=== PATIENT | female | born 1990 | race Caucasian/White ===

== ENCOUNTER 2016-09-15 18:29 | Inpatient (IN) | payer BC ==
[~2016-09-15] VITALS: Ht 157.5 cm; Wt 68.5 kg
[2016-09-19] MEDS ORDERED: PRENATAL VIT1 TAB PO (13:35)
[2016-09-19] MEDS ORDERED: IRON325 M1 PO (13:35)
[2016-09-19] MEDS ORDERED: PERCOCET 5-3251 EACH PO (13:35)
[2016-09-19] MEDS ORDERED: COLACE-DPS100 MG PO (13:35)
[2016-09-19] MEDS ORDERED: NIPPLECREAM TP (13:35)
[2016-09-19] MEDS ORDERED: MOTRIN-DPS800 MG PO (13:35)
--- NOTE | 2016-10-07 09:14 | OR ---
ADMIT: 09/15/2016 RM/LOC: 201 [facility] MR#: [id number] [address] [place] [address] LYUBOV GALVAN [address] [place] [address] Operative/Delivery Room Report SEX: F AGE: 26 : 1990 Corrected: 09/18/2016 0609 njv SURGERY DATE: 09/16/2016 SURGEON: Aby Oden MD NAME OF PROCEDURE: Primary section. GAME PROGRAMMER: Iwona Ramachandran MD Resident. PREOPERATIVE DIAGNOSES: 1. Intrauterine at 41 and 1/7th weeks' gestation. 2. Nonreassuring heart tones. POSTOPERATIVE DIAGNOSES: 1. Intrauterine at 41 and 1/7th weeks' gestation. 2. Nonreassuring heart tones. FINDINGS: Liveborn male infant, scores 8 at 1 minute, 9 at 5 minutes. Weight 7 pounds and 7 ounces. ESTIMATED BLOOD LOSS: 800 mL. ANESTHESIA: Epidural. COMPLICATIONS: None. INDICATIONS FOR PROCEDURE: The patient is a 26-year-old 1, para 0, who presented to Labor and Delivery at 41 and 0/7th weeks' gestation for scheduled induction of labor at term and due to dates. The patient's had been uncomplicated. At time of admission, the patient had misoprostol induction of labor. The patient received 2 doses of misoprostol. She had spontaneous rupture of membranes. The patient then progressed to 2 cm dilated. Pitocin augmentation of labor was then started. The patient progressed to approximately 4 cm dilated, however, at that time she began having late decelerations with Pitocin at a high enough level to have adequate contractions. The heart tones recovered when the Pitocin was off. Due to nonreassuring heart tones, decision was made to proceed with primary section. The risks, benefits, and alternatives including but not limited to risk of bleeding, possibly requiring blood transfusion, the risk of infection, the risk of injury to bowel or bladder were discussed with the patient and she agreed to proceed. DESCRIPTION OF PROCEDURE: The patient was taken to the operating room where epidural anesthesia was found to be adequate. The patient was placed in dorsal supine position in leftward tilt, and prepped and draped in usual sterile fashion. A Roblero catheter had been placed. A Pfannenstiel skin incision was made with a scalpel and was carried through to the underlying layer of fascia. The fascia was nicked in midline and this incision was extended bilaterally ADMIT: 09/15/2016 RM/LOC: 201 [facility] MR#: [id number] [address] [id number] NÉSTORLYUBOV MORELOS [address] [place] [address] Operative/Delivery Room Report SEX: F AGE: 26 : 1990 using Zamorano scissors. The superior aspect of the fascial incision was grasped with Annika clamps, elevated, and the underlying rectus muscles were dissected off with Zamorano scissors. In a similar fashion, the inferior aspect of the fascial incision was grasped with Annika clamps, elevated, and the underlying rectus muscles were dissected off with Zamorano scissors. The peritoneum was entered bluntly and this incision was extended bluntly as well. The bladder blade was then placed. The vesicouterine peritoneum was identified and entered sharply with Metzenbaum scissors. This incision was extended bilaterally and a bladder flap was created digitally. The bladder blade was then replaced. The lower uterine segment was incised with a scalpel. The uterine incision was extended bluntly. The infant was noted to be in the occiput posterior position. The infant's vertex was grasped and delivered through the uterine incision. The remainder of the infant delivered without difficulty as well. The infant was dried. The cord was clamped and cut. The was handed off to the warmer where NICU personnel were in attendance. Cord blood and cord pH were obtained. The placenta then delivered intact. Twenty units of Pitocin were placed in IV bag to firm the uterus. The uterus was exteriorized and cleared of all clots and debris. The uterine incision was closed in a running locked fashion using 0 Vicryl. A second imbricating layer was used for hemostasis of the uterine incision. There was noted to be an area at the right aspect of the incision which was noted to be bleeding, and this was made hemostatic with a [id number]-rurpt stitch of 0 Vicryl. Good hemostasis was then noted. The uterus was replaced into the abdominal cavity. The gutters were checked and cleared of all clots and debris. The uterine incision was again examined and was made hemostatic with electrocautery. The muscles and fascia were examined and made hemostatic with electrocautery. The fascial incisions were closed in a running fashion using 0 Vicryl. The subcutaneous layer was made hemostatic. This layer was brought together using interrupted 2-0 plain gut. The skin incision was closed with subcuticular stapler. The patient tolerated the procedure well. All sponge and needle counts were correct. The patient and recovered in the room in stable condition. Aby Oden MD/ solange JOB #: [id number] CC: Aby Oden, Attending Physician Aby Oden, Family Physician Corrected: 09/18/2016 0609 njv
--- NOTE | 2016-10-07 09:14 | HP ---
ADMIT: 09/15/2016 RM/LOC: 201 [facility] MR#: [id number] [address] [place] [id number] LYUBOV GALVAN [address] [place] [address] History and Physical SEX: F AGE: 26 : 1990 DATE OF SERVICE: REASON FOR ADMISSION: Induction of labor. HISTORY OF PRESENT ILLNESS: The patient is a 26-year-old 1, para 0, who presents to Labor and Delivery at 41 and 0/7th weeks' gestation by ultrasound with estimated confinement 09/08/2016. The patient's has been uncomplicated. The patient did have an HIV exposure in the 3rd trimester and was on anti-retrovirals for 1 month, but followup HIV status has been negative. At time of admission, she denied any contractions, vaginal bleeding, or loss of fluid. LABORATORY DATA: Blood type O positive, antibody screen negative, RPR nonreactive, rubella immune, group B strep negative, HIV negative, gonorrhea and chlamydia negative, hepatitis B surface antigen negative. PAST MEDICAL HISTORY: Noncontributory. PAST SURGICAL HISTORY: Laparoscopy for endometriosis in 2009. CURRENT MEDICATIONS: 1. vitamins daily. 2. Iron 325 mg daily. ALLERGIES: NO KNOWN MEDICAL ALLERGIES. FAMILY HISTORY: Father with hypertension. SOCIAL HISTORY: The patient is . She denies any alcohol, tobacco, or drug use. PHYSICAL EXAMINATION: VITAL SIGNS: On admission; blood pressure 130/80, pulse 91, temperature 98.6, and respirations 16. GENERAL: The patient is alert and oriented, no acute distress. HEART: Regular rate and rhythm without murmurs, gallops, or rubs. ADMIT: 09/15/2016 RM/LOC: 201 [facility] MR#: [id number] [address] [place] [address] [id number] LYUBOV GALVAN [address] [place] [address] History and Physical SEX: F AGE: 26 : 1990 LUNGS: Clear to auscultation bilaterally. ABDOMEN: Soft, nontender, gravid. EXTREMITIES: No edema. No calf tenderness. heart tones are in the 140s with moderate variability and accelerations present. Contractions are irregular on admission. Cervix 1 cm dilated, 50% effaced, and -1 station. ASSESSMENT AND PLAN: 1. A 26-year-old 1, para 0, at 41 and 0/7th weeks' gestation. 2. Scheduled induction of labor at term with misoprostol. We will anticipate a spontaneous vaginal delivery. Aby Oden MD/ solange JOB #: [id number] CC: Aby Oden, Attending Physician Aby Oden, Family Physician
--- NOTE | 2016-11-18 08:55 | DS ---
ADMIT: 09/15/2016 RM/LOC: 201 [facility] MR#: [id number] [id number] [place], [place] [address] LYUBOV GALVAN [address] [place] [address] Discharge Summary SEX: F AGE: 26 : 1990 ADMISSION DATE: 09/15/2016 DISCHARGE DATE: 09/18/2016 ADMISSION DIAGNOSIS: Intrauterine at 41 and 0/7th weeks' gestation. DISCHARGE DIAGNOSES: 1. Intrauterine at 41 and 0/7th weeks' gestation. 2. Nonreassuring heart tones. PROCEDURES PERFORMED: Primary section performed on 09/16/2016 with delivery of liveborn male , scores 8 at 1 minute, 9 at 5 minutes. Weight 7 pounds and 7 ounces. INDICATIONS FOR HOSPITALIZATION: The patient is a 26-year-old 1, para 0, who presented to Labor and Delivery at 41 and 0/7th weeks gestation for scheduled induction of labor secondary to dates. 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 The patient received misoprostol for induction of labor. The patient progressed through labor to 4 cm dilated, however, she was noted to have recurrent late decelerations, and so decision was made to proceed with primary section. HOSPITAL COURSE: Following primary section, the patient did well. Postoperative day#1, the patient's pain was controlled. Hemoglobin went from 10.2 to 7.8, and so, she was started on iron supplementation. By postoperative day #2, the patient was ambulating, voiding, and tolerating a regular diet, and had positive flatus, and was deemed stable for discharge. DISCHARGE INSTRUCTIONS: The patient to be discharged to home. She is to continue Percocet and Motrin as needed for pain control. She is to continue Barriga's nipple cream, and she is also to continue iron sulfate twice daily. She is to follow up in the clinic in 2 weeks for incision check, and in 6 weeks for a check. FINAL DISPOSITION: The patient is discharged to home. CONDITION ON DISCHARGE: Stable. Aby Oden MD/ solange JOB #: [id number] CC: Aby Oden MD, Attending Physician Aby Oden MD, Family Physician
== END 2016-09-18 13:15 | disposition home or self-care (01) | DRG 765 ==
LOC: 2LDRP 18:29 → BC 18:29 → 2LDRP 19:17
PROVIDERS: ADMIT Obstetrics & Gynecology
PROC: 10D00Z1 Extraction of Products of Conception, Low, Open Approach (ICD-10-PCS; principal; 2016-09-16)
PROC: 3E0P7GC Introduction of Other Therapeutic Substance into Female Reproductive, Via Natural or Artificial Opening (ICD-10-PCS; principal; 2016-09-16)
DX: O48.0 Post-term pregnancy (principal); O76 Abnormality in fetal heart rate and rhythm complicating labor and delivery; D62 Acute posthemorrhagic anemia; O99.02 Anemia complicating childbirth; D64.9 Anemia, unspecified; O90.89 Other complications of the puerperium, not elsewhere classified; R03.0 Elevated blood-pressure reading, without diagnosis of hypertension; Z20.6 Contact with and (suspected) exposure to human immunodeficiency virus [HIV]; Z3A.41 41 weeks gestation of pregnancy; Z37.0 Single live birth